=== PATIENT | female | born 1975 | race Caucasian/White ===

== ENCOUNTER → 2016-11-23 | Outpatient (CLI) | payer MEDICAID ==
[~2016-11-23] MED LIST: CLARITIN 10MG T10 MG PO; FLEXERIL10 M1 PO; PRAVACHOL40 MG PO; PRENATAL PLUS1 TA1 PO; PRILOSEC OTC20 MG PO; PROMETHAZINE25 M1 PO
--- NOTE | 2016-11-29 18:44 | RADIOLOGY REPORT PS360 ---
DIG MAMM-SCREEN FATUMA W/CAD CAD Screening COMPARISON: Digital mammograms 10/22/2014 and 11/09/2015 INDICATION: There is no personal or family history of breast cancer, the patient is on hormonal patch. TECHNIQUE: Standard CC and MLO images were obtained. R2 CAD reviewed. FINDINGS: Moderate diffuse scattered fibroglandular densities are seen throughout both breasts. There is a benign-appearing calcification right breast. There is no new or suspicious lesion in either breast and there are no suspicious microcalcifications. There are small nodes in both axilla. IMPRESSION: Stable exam with no suspicious lesion seen recommend yearly follow-up BI-RADS CATEGORY: 2_Benign RECOMMENDED FOLLOWUP: 12M 12 MONTH FOLLOW-UP (A letter has been sent to the patient regarding results of the study.)
== END ==
LOC: RAD 10:00
DX: Z12.31 Encounter for screening mammogram for malignant neoplasm of breast (principal)
CPT/HCPCS: G0202